=== PATIENT | female | born 1980 | race Caucasian/White ===

== ENCOUNTER 2023-02-01 08:00 | Outpatient (RCR) | payer SELFPAY, OTHER ==
--- NOTE | 2023-02-01 10:07 | BH.SGPN.GN ---
Behaviors/Verbalizations/Mental Status: []Pt alert and oriented, casually dressed and groomed. Eye contact fair. Motor activity appropriate. Speech within normal limits. Affect congruent, mood anxious. Thoughts linear, logical, no signs of hallucinations or delusions. Client Response/Progress/Benefit: [] Pt was actively engaged, providing input, and taking notes throughout session. Connected with the topic of pitfalls and listened to group discussion on internal and external barriers that prevent from choosing a healthier path to mental wellness. Group worked together to identify examples of personal internal pitfalls and pt identified theirs as avoidance, poor communication, not giving self credit, negative perspective, and panic. Pt benefited from group as pt learned to better identify and normalize potential barriers to improving mental health symptoms. Pt also gained awareness of the difference between external triggers and self-sabotaging behaviors. Pt will continue IOP tx to continue use of healthy coping skills, challenge distortions, and prevent decompensation.
--- NOTE | 2023-02-01 11:07 | BH.SGPN.GN ---
Behaviors/Verbalizations/Mental Status: []Pt alert and oriented, casually dressed and groomed, wearing black dress and bonnet. Eye contact good. Motor activity appropriate. Speech within normal limits. Affect constricted, mood anxious. Thoughts linear, logical, no signs of hallucinations or delusions. Client Response/Progress/Benefit: []Pt receptive of session, engaged throughout AEB actively listening to discussion, as well as taking notes. Pt participated in the experiential activity and did well to communicate ideas with peers and manage emotions. Pt and group processed how being open-minded and having good communication positively impacted the group. Group worked together to identify different coping skills to help manage pitfalls. Pt identified pitfalls they struggle with and shared wanting to work on pitfall of unmanaged stress by reminding herself to communicate more openly and honestly with her supports, as well as continue coming to IOP tx. Benefited from identifying personal pitfalls and strategies to overcome these pitfalls. Will continue IOP tx to increase the use of healthy coping skills, reduce negative thinking patterns, and improve distress tolerance. Narrative Note: []
--- NOTE | 2023-02-01 13:47 | BH.COMM_ITS ---
Communication Note Communication with Client Communication Note: Met with patient to complete initial paperwork. No significant changes since pre-admission assessment. Has been continuing with weekly counseling with therapist (Ronna). Medication recently discontinued (Sertraline) due to nausea, pt to follow-up with outpatient psychiatrist, Dr. Engle. Completed C-SSRS. Pt reports long-standing fleeting suicidal thoughts and survival ambivalence, denies any in the past two weeks. Pt states that she has seen improvement in mental health sx and reduced hopelessness since intake assessment. No specific trigger to worsening thoughts over the past 2-3 years. Denies any specific plan or intent in the past month, vague plan to strangle self. Two previous SA between July and November 2022. Protective factors (pets, family, reasons for living, lolly). Future-oriented (caregiving responsibilities). Has a completed safety plan through her outpatient therapist. She also is aware of crisis numbers. He noted during pre-admission screening and again today when referencing suicide I'm not going to do it. I don?t want to go to hell . Verbalizes she can keep self safe. Denies hx of self-injurious behaviors. Does not present as imminent danger as according to pt, she is at or near baseline. Denies any SI, plan or intent for suicide today. Reports can keep self safe. Denies access to guns. Aware of crisis numbers. No family hx of completed suicide. Consulted with program psychiatrist who is in agreement with plan to admit pt to [facility] level of care under diagnosis of Major Depressive Disorder, F33.2
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
--- NOTE | 2023-02-03 08:45 | BH.COMM ---
Communication Note Communication with Client Communication Note: Pt was scheduled to meet with program psychiatrist this AM, however psychiatrist became acutely ill (laryngitis and fever) and is unable to come to work. Discussed case with treatment team and psychiatrist. Plan to continue with admission to [facility] with dx of Major Depressive Disorder (f33.2) and she will be evaluated once psychiatrist is able.
--- NOTE | 2023-02-03 09:00 | BH.SGPN.GN ---
Behaviors/Verbalizations/Mental Status: [] Pt alert and oriented, neat and casually dressed and groomed. Eye contact good. Motor activity appropriate. Speech within normal limits. Affect congruent, mood content. Thoughts linear, logical, no signs of hallucinations or delusions. Reviewed pt?s symptom tracker, pt reports no suicidal ideation or intention. Client Response/Progress/Benefit: [] Client new to IOP tx and is still adjusting to the group setting. She was attentive but opted not to share during process group at this time. Per symptom tracker client reported a 1/5, with 5 being severe, for depressed mood (which is improved for pt) and a 2/5 for irritability. Client seemed to benefit from support from others and community environment. Client to continue IOP to build coping skill repertoire, improve mood stability, and prevent decompensation. Narrative Note: []
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
[2023-02-03 09:51] VITALS: BP 145/88; PULSE 78
--- NOTE | 2023-02-03 10:15 | BH.SGPN.GN ---
Behaviors/Verbalizations/Mental Status: []Pt alert and oriented, neatly dressed and groomed. Eye contact good. Motor activity appropriate. Speech within normal limits. Affect congruent, mood anxious. Thoughts linear, logical, no signs of hallucinations or delusions. Client Response/Progress/Benefit: [] Pt was a passive participant in group discussions and active during experiential activity. Participated during interactive discussion in which group worked together to define resilience (i.e. continuing to bounce back from hardship; willingness to keep trying) and what makes being resilient hard. Pt was quiet, but taking notes and participated during interactive discussion on if resilience is something we are born with or can learn. Able to relate the experiential activity back to topic of resilience. Worked well in small groups to identify strategies to build resilience. Benefited from increased awareness of the role of resilience in mental health and ways to build resilience. Will continue IOP tx to prevent decompensation, improve daily functioning, and increase emotional regulation skills. Narrative Note: []
--- NOTE | 2023-02-03 11:15 | BH.SGPN.GN ---
Behaviors/Verbalizations/Mental Status: [] Eye contact is good. Motor activity is appropriate. Appearance is casual. Speech is Appropriate. Mood is anxious. Affect is congruent. Thoughts are linear and logical. No evidence of psychosis. t. Client Response/Progress/Benefit: [] Did not participate during interactive discussions however was attentive. Participated in experiential activity with peers. Did not complete worksheet. Limited progress as she was not vocal and did not complete worksheets.Will continue in IOP to prevent decompensation, stabilize mood, increase healthy coping, and improve functioning. Narrative Note: []
--- NOTE | 2023-02-05 10:03 | BH.MDN ---
Multi-Disciplinary Note Note 45-min Individual: Time Started:: 09:05 Date: 02/05/23 Purpose of session/treatment goals addressed:: Review current symptoms and progress in IOP. Risk assessment. Eye Contact:: Good (tearful throughout) Motor Activity:: Appropriate Appearance:: Casual and Other (wearing bonnet and traditional orthodoxy dress) Speech:: Appropriate and Soft Mood:: Depressed Affect:: Congruent Thoughts:: Linear, Logical and No evidence of hallucinations/delusions noted Staff Interventions:: thought challenging, psychoeducation on: (affirmational statements), CBT techniques, rapport building, strengths perspective and completed risk assessment / safety planning Client Response:: Pt presented this morning tearful and stated ?I woke up really depressed?. Willing to meet with therapist to address current sx and further assess for risk. Pt reports that she felt positive after leaving group on Wednesday and made Richard cookies for her children. She overcooked the cookies and reports that her children criticized her for this. Pt shared that she became upset by this and walked away which resulted in comments about her being ?lazy?. Pt was able to go with her the next day to get lunch which helped to improve her mood but pt shared this had not lasted long. She explained that her children continued to criticize her the next day and complained that attending IOP tx kept her from completing other household responsibilities such as laundry as they wash and hang the clothes Wednesday, Wednesday, and Saturdays. Reported feeling worthless and like a burden to her family. Expressed experiencing suicidal thoughts last night as a result. Reports it did not get to the point of plan or intent and she was able to go braid the horses hair with her youngest child which improved her mood until the thoughts passed. Pt denies wanting to but does not want to continue to feel the way she does or be treated poorly. Reports she has the safety plan created with her outpatient therapist, Ronna at [facility]. Believes that her children?s lack of understanding of mental health issues may contribute to their comments and behaviors and that she has been trying to remind them that she is getting help to improve herself and be ?better for the family?. Pt shared that her 22-year-old daughter is often the instigator of the critical comments she receives and would like to specifically work on addressing this. Shared that she and her daughter do not often get to spend one-on-one time together and would like to improve the relationship they have. Discussed inviting her daughter to go for a ride on ?horse and buggy? to allow them time to talk and begin working on cultivating the relationship. Pt receptive of creating a safety plan for the weekend. Plans to call her [id number] this afternoon as he is supportive of her mental health. Also discussed plans to spend time with the animals, bake candy on Wednesday, and make breakfast over the firepit Wednesday. Shared she finds the outdoors calming and a major source or comfort. Additionally, began discussion on positive affirmations and pt worked with therapist to identify specific self-talk statements she would like to hear when feeling low. Identified ?It won?t feel like this forever?, ?keep trying?, and reminding herself of specific things she does find enjoyable in life. Reports improved mood and smiling by end of session. Risks/Concerns:: refer above. Fleeting SI the previous night, lasting less than 30 minutes, according to patient. Pt denies active SI, plan, or intent no grounds for calling police or seeking involuntary assessment at ER. Pt willing to safety plan and reports ability to maintain safety. Protective factors include her and lolly. Progress Toward Goals/Plan:: Progress noted. Pt reported brief, passive SI last night but was able to use calming skills to manage these thoughts. This was only her second day in IOP. According to pt her children?s criticism often reinforce negative thoughts about herself and her worth. Reports struggling with completing daily responsibilities which often lead to increased frustration amongst her children who have difficulties understanding and supporting her mental health. Struggles with setting boundaries and advocating for her needs within the home. Will continue in IOP to maintain safety, increase healthy coping, stabilize mood, improve boundaries with supports and functioning. Time Stopped:: 09:55
--- NOTE | 2023-02-05 10:10 | BH.SGPN.GN ---
Behaviors/Verbalizations/Mental Status: []Client alert and oriented, casually dressed and groomed - wearing dress and bonnet. Eye contact good. Motor activity appropriate. Speech within normal limits. Affect congruent, mood anxious and depressed. Thoughts linear, logical, no signs of hallucinations or delusions. Client Response/Progress/Benefit: []Client receptive to session AEB providing input when prompted, listening attentively to others, and taking notes. Attentive throughout psychoeducation on the cognitive triangle and maintenance cycles. Worked on identifying own vicious cycle. Engaged in group discussion reviewing the impact of daily activities and behaviors in either reinforcing unhealthy maintenance cycles and depression or assisting in reducing symptoms (?down? vs ?up? activities). Client identified common ?down? activities they engage in as: isolating, negative self-talk, shutting down, and staying in bed. Common ?Up? activities client identified included: playing with pets, reading bible, showering, fishing, and playing games. Appeared to benefit from increased awareness of current behaviors and impact these have on mental health. Pt to remain in IOP tx to improve mood stability, increase use of distress tolerance skills, and prevent decompensation. Narrative Note: []
--- NOTE | 2023-02-05 11:10 | BH.SGPN.GN ---
Behaviors/Verbalizations/Mental Status: [] Eye contact is fair. Motor activity is appropriate. Appearance is casual. Speech is Appropriate. Mood is anxious. Affect is constricted. Thoughts are linear and logical. No evidence of psychosis. Client Response/Progress/Benefit: [] Pt responded well to session, attentive and engaged in group discussions and activity. Group discussed values and the benefits that knowing one's values can have on one's mental health. Pt explored own values and identified personal top values. Pt stated important value is mental/emotional health. Client set goals to talking kindly to self, take medications, make time for self, and petting animals. Pt appeared to benefit from exploring values and creating a weekly goal. Will continue in IOP to increase healthy coping skills, increase confidence, and prevent decompensation.
--- NOTE | 2023-02-08 09:00 | BH.SGPN.GN ---
Behaviors/Verbalizations/Mental Status: [] Pt alert and oriented, neatly dressed and groomed. Eye contact good. Motor activity appropriate. Speech within normal limits. Affect congruent, mood depressed. Thoughts linear, logical, no signs of hallucinations or delusions. Reviewed pt?s symptom tracker, no risk for suicidal ideation, plan, or intent 02/08/23 Client Response/Progress/Benefit: []Pt responded well to session, attentive and engaged. Pt reports feeling happy this morning, which appeared incongruent to her report of having no wins and having a lot of stressors. Pt did share that she is happy to be at [facility] because she enjoys the groups and the people. Pt stated her kids are causing a lot of stress for pt right now. Pt has many children over a wide age range, and they are all dealing with different issues. Pt stated a mental health win for her today is that she continues to show up to [facility] and she is actually looking forward to [place]. Pt appeared to benefit from group feedback and support. Pt will continue IOP tx to prevent decompensation, improve daily functioning, and increase healthy coping skills. Narrative Note: []
--- NOTE | 2023-02-08 10:10 | BH.SGPN.GN ---
Behaviors/Verbalizations/Mental Status: [] Eye contact is fair to good. Motor activity is appropriate. Appearance is casual, wearing traditional quaker garb. Speech is Appropriate but constricted. Mood is depressed and anxious. Affect is constricted. Thoughts are linear and logical. No evidence of psychosis. Client Response/Progress/Benefit: [] Pt was an attentive but mostly passive participant in group discussions. Attentive during psychoeducation on the 4 communication styles (Passive, Passive-Aggressive, Aggressive, and Assertive) and the obstacles to effective communication. Contributed some during interactive discussion on the benefits of communicating effectively which included; having one's needs met, building connection with others, decreases stress and uncertainty, improved relationships, encouragement/increased motivation, increased trust, and increased understanding of others. Worked well in small group and shared more during discussion in which pt and peers identified the benefits and disadvantages to the different communication styles. Benefited from increased understanding of communication styles and how these can impact effective communication. Pt reports identifying most with passive-aggressive communication which continues to reinforce stress within the relationship with her children. Will continue in IOP to prevent decompensation, maintain mood stability, and continue to improve functioning. Narrative Note: []
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
--- NOTE | 2023-02-09 11:10 | BH.SGPN.GN ---
he communication styles she commonly uses is passive especially with her children. She wants to work on being more assertive through using I statements more . Benefited from practicing in the moment communication skills as well as increased awareness of communication styles commonly used. Will continue in IOP to prevent decompensation, increase healthy coping, and improve functioning. Narrative Note: []
--- NOTE | 2023-02-10 10:10 | BH.SGPN.GN ---
Behaviors/Verbalizations/Mental Status: [] Eye contact is fair. Motor activity is appropriate. Appearance is casual. Speech is Appropriate. Mood is anxious. Affect is constricted. Thoughts are linear and logical. No evidence of psychosis. Client Response/Progress/Benefit: [] Pt mostly passive participant AEB pt providing no input throughout group discussion. She did appear to listen to others comments. Pt attentive during psychoeducation about defense mechanisms. Showed increased engagement during small group discussions and helped group identify which defense mechanisms were maladaptive, adaptive, or both. Pt started to work with group on identifying how each defense mechanism can impact mental health. Seemed to benefit from gaining awareness about the different defense mechanisms. Pt to continue IOP to work on improving view of self, building confidence, and prevent decompensation.
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
--- NOTE | 2023-02-10 12:41 | BH.DR.ITP ---
Initial Treatment Plan Patient Information Visit Information: ADMISSION DATE: EXPECTED LOS: 4-6 weeks Problems/Symptoms Problem #1:: Depression Symptom:: Sadness, hopelessness, worthlessness, guilt, low energy, passive thoughts of , irritability, passive and active suicidal ideation Problem #2:: Anxiety Symptom:: Worry, rumination
--- NOTE | 2023-02-10 15:16 | BH.MDN ---
Multi-Disciplinary Note Note 30-min Individual: Time Started:: 09:20 Date: 02/10/23 Purpose of session/treatment goals addressed:: Purpose of the session was to address treatment plan goal #1 as well as learn grounding skill of deep breathing. Eye Contact:: Good Motor Activity:: Appropriate Appearance:: Casual Speech:: Appropriate Mood:: Anxious and Depressed Affect:: Constricted Thoughts:: Linear, Logical and No evidence of hallucinations/delusions noted Staff Interventions:: motivational interviewing, CBT techniques, mindfulness skills, rapport building, strengths perspective and taught coping skills Client Response:: Pt responded well to session, open to meeting with therapist. Pt reports she had a difficult time managing her emotions yesterday as her children and had done various things which upset her. Pt explained that her children had complained that pt made leftovers for lunch and called pt ?lazy? for not making a new meal. Pt shared that she became upset by this and felt more negative about herself and her worth as a result. She did take some time away from the house to go [employer] shopping which aided in improving her mood. Reports that upon her return her children had apologized for complaining and recognized pt was trying to prevent waste. However, later that afternoon she was informed by her that he had decided to purchase several horses without first consulting pt. Shared that this was a major financial investment and therefore very stressful for her as she does not believe they have the finances for such an investment. Reports that she became very upset by this and yelled at her resulting in her older daughters telling pt to go outside to calm down. Pt reports doing so and spent time observing her other children completing some chores. Shared that the outdoors are a significant source of support for her and aided in improving her mood. She was then able to discuss the events with her and explain why this had upset her. Reports he was understanding and agreed to consult pt prior to making any significant future purchases. Pt was receptive of working with therapist to begin identifying her common warning signs and triggers for dysregulation. Pt identified receiving harsh criticism from her children or feeling left out by her are primary triggers. Reviewed calming skills she can use in moments she recognized herself becoming dysregulation. Pt identified coloring, going outside, or calling a support. Receptive of learning deep breathing techniques in session as well. Willing to practice these skills over the weekend. Risks/Concerns:: Pt reports fleeting passive SI but denies active current suicidal ideation, plan, or intent as of this date. Progress Toward Goals/Plan:: Progress remains limited. Pt is making gains in beginning to apply distress tolerance skills and positive self-talk statements; however, at times reports difficulties with using the skill in moments she is triggered. Continues to report mood instability and difficulties with managing her emotions when triggered by her children or 's behaviors or comments. At times this has led to increased SI in the past. Pt is working on assertive communication but is not yet readying to establish boundaries with her children regarding their critical comments about pt and her mental health. Recommended continued IOP tx to improve mood stability, reduce depression, and improve healthy boundaries with supports. Time Stopped:: 09:50
--- NOTE | 2023-02-12 09:05 | BH.SGPN.GN ---
Behaviors/Verbalizations/Mental Status: [] Pt alert and oriented, neatly dressed and groomed. Eye contact good. Motor activity appropriate. Speech within normal limits. Affect constricted, mood depressed Thoughts linear, logical, no signs of hallucinations or delusions. Reviewed pt?s symptom tracker, no risk for suicidal ideation, plan, or intent 02/12/23 Client Response/Progress/Benefit: []Pt responded well to session, attentive and receptive to feedback. Pt reports feeling nervous this morning. Pt's process group check-ins are always short, and pt stated she struggles to identify any wins. Pt connected with a peer who reported struggling with anger and pt shared I want to work on my anger. Pt reported that she fears that she has hurt my enough already from witnessing pt's anger. Pt receptive to group feedback and encouragement which pt appeared to benefit from. Pt will continue IOP tx to prevent decompensation, improve healthy coping skills, and improve daily functioning. Narrative Note: []
--- NOTE | 2023-02-12 10:00 | BH.SGPN.GN ---
Behaviors/Verbalizations/Mental Status: [] Client alert and oriented, casually dressed and groomed. Eye contact good. Motor activity appropriate. Speech within normal limits. Affect congruent, mood euthymic and anxious. Thoughts linear, logical, no signs of hallucinations or delusions. Client Response/Progress/Benefit: [] Client responded well to session, AEB writing notes. Client did not offer much input during group discussion. Group identified the benefits of change which included: personal growth, increased confidence, improving mental health, and creating momentum. Worked with the group to identify barriers to change, which included: uncomfortable emotions such as anxiety, lack of motivation, fatigue, pain, and physical barriers. Client participated along with group in activity where they identified and discussed the emotions related to change. Benefited from increased awareness and understanding of emotions, benefits, and barriers related to change. Will continue IOP tx to continue to prevent decompensation and increase overall functioning. Narrative Note: []
--- NOTE | 2023-02-12 11:10 | BH.SGPN.GN ---
Behaviors/Verbalizations/Mental Status: [] Client alert and oriented, casually dressed and groomed. Eye contact good. Motor activity appropriate. Speech within normal limits. Affect congruent, mood euthymic. Thoughts linear, logical, no signs of hallucinations or delusions. Client Response/Progress/Benefit: [] Client responded well to session, attentive. Did well to process activity and work with group to relate the strategies used to overcome barriers in the activity to managing change in own life. Client identified and overall change she would like to see in herself is having an overall improvement in her mental health. Client identified currently being in the preparation stage for this particular change. Appeared to benefit from identifying a small goal to work towards. Client will continue IOP tx to increase self worth, gain healthy coping skills, and increase overall functioning. Narrative Note: []
--- NOTE | 2023-02-17 09:47 | PCM.BH.PN_ITS ---
Progress Note Progress Note: History of Present Illness/Interim History: The patient is a 42-year-old Yazidism female with a history of depression and anxiety who is seen in follow-up at the [facility] behavioral health IOP. I last saw the patient 1 week ago and at that time she continued to have significant suicidal ideation. She was restarted on medications in the form of Lexapro 1 week ago at 5 mg daily and was told to increase it to 10 mg daily after several days if she was tolerating it well. She is tolerating it well and increased to 10 mg few days ago. She feels her mood is slightly better and she is less depressed. She feels she is getting a little more support from her . She had did have 1 anger outburst at her yesterday but then they went to [place] and she went with him and this helped her because she was able to get out of the house. Her cold sores around her mouth have pretty much resolved after treatment with Valtrex. She denies any suicidal ideation in the past week and felt she handled [place] well. She still has sadness, crying, occasional hopelessness, worthlessness, guilt, and passive thoughts of . She is still enjoying petting animals and being outdoors. Sleep and appetite remain stable. She still feels that suicide is not morally right . She denies homicidal ideation, plan for suicide, hallucinations or delusions. She denies any panic attacks. Current Psychiatric Medications: [] Zoloft discontinued 2 weeks ago secondary to nausea. Lexapro 5 mg daily for 3 days and then 10 mg p.o. daily for the past 4 to 5 days. Mental Status Examination: [] The patient is a 42-year-old Yazidism woman dressed in the normal Yazidism fasten who is who appears a little older than stated age and is casually dressed and groomed with good hygiene. Her cold sores around her mouth and nose have almost completely resolved. She is coopera tive and pleasant during the interview. She has no psychomotor agitation or retardation. Eye contact is good and speech is normal rate and rhythm and fluent with no pressure. Mood is depressed. Affect is constricted but not flat. Thought process is goal-directed and organized. Thought content: There is evidence of passive thoughts of . There is no evidence of suicidal ideation active or passive, plan for suicide, homicidal ideation, hallucinations or delusions. Reality testing is intact. Intelligence is average or above. Judgment is intact. Insight improving. Diagnoses: [] 1. Major depressive disorder, recurrent, severe without psychosis 2. Generalized anxiety disorder 3. Mouth and lip cold sores (resolving) 4. Primary support issues Plan: [] The patient will continue the IOP in behavioral health at [facility] as the structure, support, education and group therapy will hopefully prevent worsening of the patient's symptoms which could require ad mission to the hospital. She felt safe during the interview and if it anytime she does not feel safe she agrees to let us know or go to the emergency room. The risk, options, possible complications and side effects of the medications were discussed with the patient and she understands and accepts these. She will continue her Lexapro at 10 mg p.o. daily and refills are sent in for this. I will see the patient in follow-up in 2 weeks and the patient will continue to follow-up with outpatient providers.
--- NOTE | 2023-02-17 10:10 | BH.SGPN.GN ---
Behaviors/Verbalizations/Mental Status: []Pt alert and oriented, neatly dressed and groomed. Eye contact fair. Motor activity appropriate. Speech within normal limits. Affect constricted, mood depressed. Thoughts linear, logical, no signs of hallucinations or delusions. Client Response/Progress/Benefit: [] Pt connected with topic of anxiety and participated throughout, providing input and taking notes. Attentive during psychoeducation on different anxiety disorders and participated throughout interactive discussion defining anxiety and identifying cognitive and physiological symptoms of anxiety. Group discussed how anxiety can prevent them from trying new things. 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 Pt identified canceling plans as their safety behavior. Benefited from increased awareness and insight on anxiety and its impact. Plan is to continue in IOP to prevent decompensation, improve mood stability, and gain healthy coping skills. Narrative Note: []
--- NOTE | 2023-02-17 10:43 | BH.MDN ---
Multi-Disciplinary Note Note 30-min Individual: Time Started:: 09:30 Date: 02/17/23 Purpose of session/treatment goals addressed:: Purpose of session was to address treatment plan goal #1 and begin working on healthy boundary setting. Eye Contact:: Good Motor Activity:: Appropriate Appearance:: Casual Speech:: Appropriate Mood:: Anxious and Depressed Affect:: Congruent Thoughts:: Linear, Logical and No evidence of hallucinations/delusions noted Staff Interventions:: thought challenging, motivational interviewing, psychoeducation on: (boundary setting and assertive communication), CBT techniques and strengths perspective Client Response:: Pt receptive of session, engaged and more open than in prior sessions. Pt notes improvements in her mood over the past week and attributes this in part to doubling her Lexapro from 5mg to 10mg since meeting with the program psychiatrist last week. Additionally shared that most of her family was more amiable over the hol, apart from her 22-year-old daughter, and they had been able to spend time together as a family with minimal conflict. Pt reported the 22 year-old continues to struggle with taking out her own negative mood on pt. Provided an example in which her daughter made comments that ?mom always messes up everything? after pt made a mistake while the family was playing a game together. Pt shared trying to ignore the comment but struggled to do so as pt?s and [id number] brought up concerns about how the 4 oldest children speak with pt. Pt receptive of discussion on assertive communication and establishing a boundary of respect. Pt reports wanting to talk with her children, especially the 22-year-old, about their comments but is unsure of how to go about doing so. Receptive of discussion on ?I? statements and being clear about her expectations. Pt reports her daughter will likely get upset and lock herself in the room. In challenging pt?s use of personalization, pt able to recognize how her daughter chooses to process and regulate her own emotions is not pt?s responsibility. Reports a goal of first discussing her plans to implement a boundary with her [id number] and who are supports. Shared she would like to have the conversation with her daughter by Wednesday of next week as this is one of pt?s largest stressor impacting her mood stability. Risks/Concerns:: Pt denies any SI, plan, or intent in the past week. Was receptive of reviewing safety plan and reports willingness to reach out to supports if beginning to experience SI. Pt future oriented and reports an ability to maintain safety. Family and lolly are protective factors. Pt additionally willing to touch base with therapist on scheduled IOP days to determine if she may need an additional support session. Pt is on the waitlist for [facility] treatment program and has an admission date of 03/12/22 if pt does not see consistent enough progress prior to this date. Progress Toward Goals/Plan:: Some progress noted. Pt reports improved mood and ability to reach out to healthy supports when struggling. Reports no SI, plan, or intent in the last week which pt attributes to a combination of medication, improved support, and learning new skills in IOP tx. Pt reports increased understanding of emotion regulation skills and mindfulness strategies. She continues to struggle with interpersonal conflict with her children and poor boundaries causing increased stress. Pt distress tolerance remains low and she is recommended to remain in the IOP tx program to continue to promote mood stability, encourage healthy boundaries, and prevent decompensation.
--- NOTE | 2023-02-17 11:10 | BH.SGPN.GN ---
Behaviors/Verbalizations/Mental Status: []Pt alert and oriented, neatly dressed and groomed. Eye contact good. Motor activity appropriate. Speech within normal limits. Affect constricted. mood anxious. Thoughts linear, logical, no signs of hallucinations or delusions. Client Response/Progress/Benefit: [] Pt was an active participant AEB pt providing input and listening attentively to peers. Attentive during psychoeducation on mindfulness coping skills and their impact on reducing anxiety and improving overall mental health wellness. Group was able to identify self-soothing and mind-based coping skills which included: 5-senses, meditation, deep breathing, journaling, and progressive muscle relaxation. Pt also participated with peers in practicing mindfulness skills in session. Pt would like to work on meditation and telling herself that thoughts are thoughts not facts. Appeared to benefit from increasing repertoire of anxiety reduction skills. Pt will continue in IOP tx to reduce negative thinking patterns, increase self-confidence, and gain healthy coping skills. Narrative Note: []
--- NOTE | 2023-02-19 09:05 | BH.SGPN.GN ---
Behaviors/Verbalizations/Mental Status: [] Pt alert and oriented, neatly dressed and groomed. Eye contact good. Motor activity appropriate. Speech within normal limits. Affect congruent, mood anxious. Thoughts linear, logical, no signs of hallucinations or delusions. Reviewed pt?s symptom tracker, no risk for suicidal ideation, plan, or intent 02/19/23 Client Response/Progress/Benefit: []Pt responded well to session, attentive and participating in the GLAD activity. Pt reports feeling happy and sad this morning. Pt stated she feels grateful to be at IOP as pt is getting new skills and feels that her medication is helping improve her mood. Pt stated she is also benefitting from not isolating and from getting new perspectives. Pt is feeling worried today about having to stock the freezer with 700lbs of meat when she gets home, but pt believes there will be people to help her. Pt appeared to benefit from practicing a self-reflection technique and from group support. Pt will continue IOP tx to promote mood stability, improve self-compassion skills, and improve daily functioning. Narrative Note: []
--- NOTE | 2023-02-19 10:10 | BH.SGPN.GN ---
Behaviors/Verbalizations/Mental Status: []Pt alert and oriented, casually dressed and groomed. Eye contact fair. Motor activity appropriate. Speech within normal limits. Affect congruent, mood anxious and euthymic. Thoughts linear, logical, no signs of hallucinations or delusions. Client Response/Progress/Benefit: [] Pt receptive to session AEB contributing to small group discussion, as well as listening attentively to others, and taking notes. Worked with group to brainstorm the positive and negative aspects of stress on physical and mental health. Group did well to identify the benefits of stress as well as the impact of distress on performance, relationships, and mental health. Pt identified their personal top stressors as: mental health, home responsibilities, family conflict, and money concerns. Pt reports when their jar is ?overflowing? pt tends to respond by shutting down. Pt seemed to benefit from increased awareness of current stressors and impact stress has on mental health. Recommended to continue IOP tx to improve confidence, continue working on setting boundaries, and prevent decompensation.
--- NOTE | 2023-02-19 11:10 | BH.SGPN.GN ---
Behaviors/Verbalizations/Mental Status: []Pt alert and oriented, casually dressed and groomed. Eye contact good. Motor activity appropriate. Speech within normal limits. Affect congruent, mood anxious and euthymic. Thoughts linear, logical, no signs of hallucinations or delusions. Client Response/Progress/Benefit: [] Pt was an active participant in group discussions and experiential activity. Was able to identify the connection between the experimental activity and utilization of stress management skills. Pt reported group succeeded because of their clear communication. Attentive during psychoeducation on the 4 A's (Avoid, adapt, alter, accept) of coping with stress. Pt shared plans to utilize the skill of accepting what's outside her control and focusing on what she can do with each of her stressors. Benefited from increased awareness of stress management strategies. Will continue in IOP to continue building healthy coping, build confidence, and prevent decompensation.
== END 2023-02-21 23:59 ==
LOC: BHIOP 08:00
PROVIDERS: Referring Provider Psychiatry & Neurology Psychiatry; Visit Provider Psychiatry & Neurology Psychiatry
DX: F33.2 Major depressive disorder, recurrent severe without psychotic features (principal); F41.1 Generalized anxiety disorder; R45.851 Suicidal ideations; Z79.899 Other long term (current) drug therapy
CPT/HCPCS: S9480; 90832; 90834; 90837; 90853

== ENCOUNTER 2023-02-23 07:28 | Outpatient (RCR) | payer SELFPAY, OTHER ==
[2023-02-22 00:49] VITALS: BP 145/88; PULSE 78
--- NOTE | 2023-02-24 09:05 | BH.SGPN.GN ---
Behaviors/Verbalizations/Mental Status: [] Pt alert and oriented, casually dressed and groomed. Eye contact good. Motor activity appropriate. Speech within normal limits. Affect constricted, mood depressed. Thoughts linear, logical, no signs of hallucinations or delusions. Reviewed pt?s symptom tracker, no risk for suicidal ideation, plan, or intent 02/25/23 Client Response/Progress/Benefit: []Pt responded well to session, attentive and participating when prompted. Pt reports feeling tired this morning after the long weekend and being social for most of the weekend. Pt stated one of her wins is that she and her family got all the meat put away and after that pt was still able to enjoy herself. Pt shared she and her played games with friends until the underground roof bolter hours. Pt's stressor is ongoing issues with her parents and siblings. Pt shared this was her first holiday away from her family and it was very hard for pt. Pt reported she has some supports she can talk to about this outside of IOP which is helpful. Pt appeared to benefit from peer support and from not isolating today. Pt will continue IOP tx to prevent decompensation, improve daily functioning, and increase self-care practices. Narrative Note: []
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
--- NOTE | 2023-02-24 10:05 | BH.SGPN.GN ---
Behaviors/Verbalizations/Mental Status: []Pt alert and oriented, casually dressed and groomed. Eye contact good. Motor activity appropriate. Speech within normal limits. Affect congruent, mood anxious and depressed. Thoughts linear, logical, no signs of hallucinations or delusions. Client Response/Progress/Benefit: []Pt was an active participant during interactive group discussions. Attentive during psychoeducation on the six types of boundaries. Pt along with peers contributed to interactive discussion on defining what a boundary is and group identified challenges to setting boundaries. Pt discussed personal barriers of difficulties with confrontation and low self-esteem. Group reviewed the 6 types of boundaries. Pt stated she does well with material and time, but feels she needs to improve upon emotional and physical boundaries. Pt benefited from increased awareness and insight on the importance/benefit to setting healthy boundaries. Will continue IOP tx to increase distress tolerance skills, improve daily functioning and boundaries within interpersonal relationships, and reduce interpersonal conflict. Narrative Note: []
--- NOTE | 2023-02-24 11:15 | BH.SGPN.GN ---
Behaviors/Verbalizations/Mental Status: []Pt alert and oriented, casually dressed and groomed. Eye contact good. Motor activity appropriate. Speech within normal limits. Affect congruent, mood depressed and anxious. Thoughts linear, logical, no signs of hallucinations or delusions. Client Response/Progress/Benefit: []Pt responded well to session AEB listening attentively to peers and providing input when prompted. Pt attentive during psychoeducation on the different boundary styles. Pt identified she is more flexible with her and is making more progress in this area since starting mental health tx. Stated she is rigid when it comes to work and is not likely to ask for help. Pt was given a handout on strategies for healthy boundary setting. Identified wanting to practice reflecting on long-term benefits of boundaries and improving use of assertive communication to improve her own boundaries. Appeared to benefit from increasing insight to boundary setting and the impacts on mental health. Seemed to benefit from increased awareness of boundary styles and strategies to improve setting boundaries. Will continue IOP tx to promote healthy communication and boundary setting, continue use of healthy coping skills, and prevent decompensation.] Narrative Note: []
--- NOTE | 2023-02-26 10:10 | BH.SGPN.GN ---
Behaviors/Verbalizations/Mental Status: [] Client alert and oriented, casually dressed and groomed. Eye contact good. Motor activity appropriate. Speech within normal limits. Affect congruent, mood depressed. Thoughts linear, logical, no signs of hallucinations or delusions. Client Response/Progress/Benefit: [] Client did not participate in large group discussions however was attentive during psychoeducation. Attentive during interactive discussion in which the group defined self-care and discussed its benefits. Attentive as other group members discussed barriers to engaging in self-care as well as benefits which included; decreased irritability, decreased stress/anxiety, improved physical health, increased productivity, etc. Client participated at times in small group where they worked to identify common self-care ?myths? (self-care is selfish, self-care is self-indulgent, self-care is just personal hygiene, self-care should be fun, self-care is too time consuming, I don?t deserve it, self-care means I?m not being productive).Benefited from increased awareness of self-care, its benefits, and the consequences of not utilizing self-care strategies. Will continue IOP tx to maintain safety, increase healthy coping skills, and prevent decompensation. Narrative Note: []
--- NOTE | 2023-02-26 11:10 | BH.SGPN.GN ---
Behaviors/Verbalizations/Mental Status: []Pt alert and oriented, neatly dressed and groomed. Eye contact good. Motor activity appropriate. Speech within normal limits. Affect congruent, mood depressed. Thoughts linear, logical, no signs of hallucinations or delusions. Client Response/Progress/Benefit: [] Client engaged participant AEB completing self-assessment worksheet and providing input throughout discussion. Client completed worksheet identifying current self-care practices and what self-care activities client wants to start using. Client selected physical self-care to begin practicing more consistently. Client plans to do this by having a more routine sleep/wake schedule. ?Appeared to benefit from completing the self-care evaluation and gaining insights into current self-care practices, as well as identifying areas in which client would like to improve upon. Client will continue IOP tx to prevent decompensation, improve daily functioning, and reduce negative thinking patterns. Narrative Note: []
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
--- NOTE | 2023-03-03 09:05 | BH.SGPN.GN ---
Behaviors/Verbalizations/Mental Status: [] Eye contact is good. Motor activity is appropriate. Appearance is casual. Speech is Appropriate. Mood is anxious. Affect is congruent. Thoughts are linear and logical. No evidence of psychosis. Reviewed daily check in sheet and no reports of suicidal ideations or intent. Client Response/Progress/Benefit: [] Pt participated when prompted. Attentive. Shared that she was ill in the beginning of the week, however is feeling better. Mental health wins include complete household tasks. She reports that her mental health is stablizing. Credits this mostly to medication change stating that she is less irritable and reactive. Elaborated on how this has improved her stress, anxiety, depression, and relationships. Smiling and more engaged in group than usual. Progress noted per pt report. Benefited from group support, encouragement, and feedback. Will continue in IOP to maintain safety, stabilize mood, and improve functioning. Narrative Note: []
--- NOTE | 2023-03-03 10:10 | BH.SGPN.GN ---
Behaviors/Verbalizations/Mental Status: [] Client alert and oriented, casually dressed and groomed. Eye contact good. Motor activity appropriate. Speech within normal limits. Affect congruent, mood euthymic and anxious. Thoughts linear, logical, no signs of hallucinations or delusions. Client Response/Progress/Benefit: [] Client responded well to session AEB sharing and listening attentively to others. Group provided examples of benefits of having social support, including: feeling like you matter, security, and motivation. Client also participated in group discussion regarding the barriers to accessing support including personal examples like: not reaching out, lack of communication, and over using certain supports. Client participated in experiential activity illustrating the impact communication, boundaries, and patience play in creating healthy support systems. Client appeared to benefit from increased knowledge of the benefits of social support and greater self-awareness. Will continue IOP tx to prevent decompensation, reduce negative self-talk, and improve overall functioning. Narrative Note: []
--- NOTE | 2023-03-03 11:10 | BH.SGPN.GN ---
Behaviors/Verbalizations/Mental Status: [] Client alert and oriented, casually dressed and groomed. Eye contact good. Motor activity appropriate. Speech within normal limits. Affect congruent, mood euthymic and anxious. Thoughts linear, logical, no signs of hallucinations or delusions. Client Response/Progress/Benefit: [] Client was an active participant throughout AEB contributing to discussion, providing personal examples, and taking notes. Client processed emotions felt in the activity and how they coped in the moment. Client provided input during discussion on the types of support our supports can provide. Client able to identify current support system and barriers that get in the way of using supports by drawing out their own support net. Client reported after identifying what type of supports they receive; they gained awareness that they could benefit from more social supports. Client identified steps to achieve this by saying yes when a friend reaches out, and calling her sister in law more. Client shared increasing this support will help them by improving overall ability to communicate with others. Client seemed to benefit from identifying the type of support client needs to work on improving. Client recommended to continue IOP tx to prevent decompensation, increase overall functioning, and increase emotional regulation skills. Narrative Note: []
--- NOTE | 2023-03-03 11:55 | BH.MDN ---
Multi-Disciplinary Note Note 45-min Individual: Time Started:: 08:30 Date: 03/03/23 Purpose of session/treatment goals addressed:: Purpose of session was to address tx plan goal #1 and goal #2, intervention #2. Created anger management plan. Eye Contact:: Good Motor Activity:: Appropriate Appearance:: Neat and Casual Speech:: Appropriate Mood:: Anxious and Dysthymic Affect:: Congruent Thoughts:: Linear, Logical and No evidence of hallucinations/delusions noted Staff Interventions:: motivational interviewing, psychoeducation on: (trauma impacts on emotion regulation), CBT techniques, strengths perspective and other (created anger management plan) Client Response:: Pt responded well to session, reports feeling better today as she was sick Wednesday and missed group. Pt reports her family was unable to celebrate her birthday due to pt being sick, therefore they celebrated yesterday. Discussed feeling loved and cared for, as her children went out of their way to surprise pt with sandwiches and a new coat. Pt expressed gratitude as she had been in need of a new winter coat and was glad they had been paying attention. Noted that overall her relationships with her children are improving and they are continuing to be more supportive and less critical of pt. Went on to discuss a conversation she had the previous day. Shared that her [id number] brought over a friend who has previously struggled with her mental health to talk with the pt. She reported that this was very beneficial and that she felt less alone in her struggles. Discussed some of the coping suggestions this woman provided, such as remembering to ?keep looking up to God? in hard times and that ?things will get better if I just hold on?. Noted plans to stay in contact for continued support as well. Pt described current stressor of outside observers continuing to interfere with pt?s mental health treatment by making suggestion on how her should be ?handling things?. Pt disclosed that another person recommended to pt?s that she seek residential treatment. Pt expressed becoming upset by this and angry other?s continue to force their involvement. Pt shared taking this out on her and smacking his arm in anger. Pt continues to express guilt, shame, and embarrassment when becoming physically aggressive. Shared that she struggles with remembering her skills in the moment and reverts back to maladaptive behaviors. Noted that her remains supportive and attempts to calm pt in moments of distress. Pt receptive of and appeared to connect with psychoeducation on the impact of trauma on emotion regulation. Receptive of creating a concrete anger management plan that pt can keep with her to remind her of the adaptive skills she can utilize to better manage her emotions. This plan included: 5-senses, deep breathing, walking out to visit the animals, writing, and progressive muscle relaxation. Reports to practice 1-2 skills daily to improve her ability to apply these in moments of distress. Risks/Concerns:: None noted. Pt denies SI, plan, or intent as of this date, 03/03/23. Progress Toward Goals/Plan:: Progress remains variable. Pt reports continued improvement in her mood, specifically with sx of depression and anxiety. She reports her interpersonal relationships are improving and her caregiver fatigue has reduced as a result. Pt has been complaining less of fatigue and low motivation. She does however continue to struggle with distress tolerance, specifically related to unexpected news/information of other?s talking to her about her or making decisions without her consent/input. Pt reports lashing out verbally and physically at her during these instances, followed by guilt and embarrassment about doing so. Pt shared that she does not want to respond with anger but struggles in the moment to remember to use her more adaptive coping mechanisms. Pt receptive of creating a concrete anger management plan she can keep with her to remind her of her skills. Additionally, reports plans to practice 1-2 skills daily to improve ease of implementation in the moment. Time Stopped:: 09:10
--- NOTE | 2023-03-05 09:05 | BH.SGPN.GN ---
Behaviors/Verbalizations/Mental Status: [Patient was alert and oriented, appropriately dressed and groomed. Eye contact was good, motor activity normal, speech within normal limits. Affect congruent, mood content. Thoughts linear, logical, no signs of hallucinations or delusions. Reviewed Patients symptom tracker and the patient reports low in depressed mood. Patient does not report any symptoms in anxiety/panic attacks, agitation/irritability/anger, self-harm urges, or thought/risk of suicide. ] Client Response/Progress/Benefit: [Patient was engaged and open to the discussion. Patient reported her mood to be ?tired?. Patients first win was that she was able to get all her windows cleaned yesterday which has been something she has been putting off. Patients second win was that she has been using the 5 senses coping skills which has been helping ?a little?. Patients stressor is that she is having a lot of people over the weekend, and she still needs to go buy some of it and worry about cooking it. Patient was interactive and respectful with other group members about their mental wins and stressors. Patient benefited from the discussion by listening to feedback and giving input on her peer?s stressors and mental health wins. Patient will continue with IOP treatment to help develop healthy skills, promote mood stability, and improve distress tolerance. ] Narrative Note: []
--- NOTE | 2023-03-05 10:10 | BH.SGPN.GN ---
Behaviors/Verbalizations/Mental Status: [] Eye contact is good. Motor activity is appropriate. Appearance is casual. Speech is Appropriate. Mood is anxious. Affect is congruent. Thoughts are linear and logical. No evidence of psychosis. Client Response/Progress/Benefit: [] Patient did not participate in group discussions. Attentive during psychoeducation on growth mindset. Participated during the activity. Attentive during interactive group discussion on growth mindset in which group verbalized their current fixed mindsets and how they affect their mental health. Patient shared common fixed mindset thoughts they have which included It is to late to change; I'm always going to be like this; I will never get credit?.. Patient benefited from increased awareness of growth mindset and fixed thoughts and how fixed thoughts impact their mental health. Will continue in IOP to maintain safety, increase healthy coping skills, and improve functioning. Narrative Note: []
--- NOTE | 2023-03-05 11:15 | BH.SGPN.GN ---
Behaviors/Verbalizations/Mental Status: []Pt alert and oriented, casually dressed and groomed. Eye contact fair to good. Motor activity appropriate. Speech within normal limits. Affect congruent, mood anxious and content. Thoughts linear, logical, no signs of hallucinations or delusions. Client Response/Progress/Benefit: [] Pt was an active participant during activity and discussion AEB providing some input when prompted, connecting with peers, as well as taking notes throughout. Pt did well to remain attentive as group worked on identifying characteristics and benefits of adopting a growth mindset. Worked with fellow participants in reframing the example fixed thoughts into growth mindset thoughts. Pt worked on changing own fixed thought of It's too late to change to a more growth mindset thought of I can keep going to IOP to continue growing and using coping skills . Receptive of discussing benefits of growth mindset and brainstorming strategies for prompting growth-mindset. Pt appeared to benefit from working in small groups to challenge own thoughts and help peers. Pt will continue IOP tx to improve mood stability, reduce negative thought patterns, and improve daily functioning. Narrative Note: []
--- NOTE | 2023-03-08 09:05 | BH.SGPN.GN ---
Behaviors/Verbalizations/Mental Status: [Patient was alert and oriented, appropriately dressed and groomed. Eye contact was good, motor activity normal, speech within normal limits. Affect congruent, mood content. Thoughts linear, logical, no signs of hallucinations or delusions. Reviewed Patients symptom tracker and the patient reports low in depressed mood. Patient does not report any symptoms in anxiety/panic attacks, agitation/irritability/anger, self-harm urges, or thought/risk of suicide.] Client Response/Progress/Benefit: [Patient was engaged and open to the discussion. Patient reported her mood to be ?tired and hopeful?. Patients first win is that she has been in the program for about 5 weeks now and that she has found it very helpful. She stated she is grateful for what this program has done for her. Patients second win was that her get together over the weekend went well and she had ?a great time? but now her sleep schedule is off since she stayed up all night Wednesday. Patients stressor is that this coming weekend she is going to a big family gathering on her husbands side of the family and she does not like being around a lot of people. Her sister in-law will be there though which she is a good support. Patient was interactive and respectful with other group members about their mental wins and stressors. Patient benefited from the discussion by listening to feedback and giving input on her peer?s stressors and mental health wins. Patient will continue with IOP treatment to help develop healthy skills, promote mood stability, and improve distress tolerance. ] Narrative Note: []
--- NOTE | 2023-03-08 10:10 | BH.SGPN.GN ---
Behaviors/Verbalizations/Mental Status: [] Eye contact is good. Motor activity is appropriate. Appearance is casual. Speech is Appropriate. Mood is anxious. Affect is constricted. Thoughts are linear and logical. No evidence of psychosis. Client Response/Progress/Benefit: [] Pt was an active participant in group discussions. Attentive during psychoeducation AEB by note taking and providing some input. Pt worked along with peers in small groups to define guilt, inappropriate guilt, and appropriate guilt. Interactive discussion on examples of both inappropriate and appropriate guilt. Pt identified a personal example of inappropriate guilt feeling bad about taking care of self and how this impacted their mental health. Benefited from increased awareness of guilt and the differences between appropriate and inappropriate guilt. Will continue in IOP to improve distress tolerance, increase healthy coping, and prevent decompensation.
--- NOTE | 2023-03-08 11:10 | BH.SGPN.GN ---
Behaviors/Verbalizations/Mental Status: []Pt alert and oriented, neatly dressed and groomed. Eye contact good. Motor activity appropriate. Speech within normal limits. Affect constricted, mood dysthymic. Thoughts linear, logical, no signs of hallucinations or delusions. Client Response/Progress/Benefit: [] Pt engaged participant AEB listening attentively to others and providing input throughout group. Pt worked with their small group to identify strategies to manage inappropriate guilt. Pt stated pt often feels inappropriate guilt when pt ?takes care of myself? instead of always taking care of others. Pt wants to work on combatting inappropriate guilt by continuing to come to IOP and work on her mental health. Pt seemed to benefit from learning about strategies to manage appropriate and inappropriate guilt. Pt will continue IOP tx to increase self-care, reduce negative thinking patterns, and improve emotional regulation. Narrative Note: []
--- NOTE | 2023-03-10 09:05 | BH.SGPN.GN ---
Behaviors/Verbalizations/Mental Status: [Patient was alert and oriented, appropriately dressed and groomed. Eye contact was good, motor activity normal, speech within normal limits. Affect congruent, mood content. Thoughts linear, logical, no signs of hallucinations or delusions. Reviewed Patients symptom tracker and the patient reports low in depressed mood. Patient does not report any symptoms in anxiety/panic attacks, agitation/irritability/anger, self-harm urges, or thought/risk of suicide.] Client Response/Progress/Benefit: [Patient was engaged and open to the discussion. Patient reported her mood to be ?happy?. Patients firs win was that she got some alone time last night and decided to color which has been a coping skill she has been trying out. Patient reported that it has been helping and she likes it. Patients second win was that she finally got her deer meat all put into the freezer which she had been putting off. Patient stressor was that this weekend she has a get together that she can?t stop thinking about and is not wanting to go to. Patient was interactive and respectful with other group members about their mental wins and stressors. Patient benefited from the discussion by listening to feedback and giving input on her peer?s stressors and mental health wins. Patient will continue with IOP treatment to help develop healthy skills, promote mood stability, and improve distress tolerance. ] Narrative Note: []
--- NOTE | 2023-03-10 11:15 | BH.SGPN.GN ---
Behaviors/Verbalizations/Mental Status: []Pt alert and oriented, casually dressed and groomed. Eye contact fair to good. Motor activity appropriate. Speech within normal limits. Affect congruent, mood anxious. Thoughts linear, logical, no signs of hallucinations or delusions. Client Response/Progress/Benefit: [] Pt responded well to session AEB taking notes and contributing to discussion throughout. Pt engaged as group continued discussion on acceptance and the mental health benefits of practicing acceptance. Pt and peers identified what makes acceptance challenging and pt completed a self-reflection exercise on what is hard to accept in pt's life. Pt identified struggling to accept needing a medication and making mistakes?. Group identified strategies to increase acceptance and pt shared wanting to focus on continuing to come to IOP to get positive encouragement. Pt appeared to benefit from gaining insight and learning strategies to increase acceptance. Pt will continue IOP tx to improve mood stability, reduce negative thinking patterns, and increase self-care. Narrative Note: []
--- NOTE | 2023-03-10 11:46 | PCM.BH.PN_ITS ---
Progress Note Progress Note: History of Present Illness/Interim History: The patient is a 43-year-old Mormon female with a history of depression and anxiety who is seen in follow-up at the [facility] behavioral health IOP. Last saw the patient 3 weeks ago and no medication changes were made at that time. The patient according to staff has been consistently attending and is engaged in the program. They feel she is making good progress. The patient states that her mood continues to improve slowly. She feels she is much less depressed than she was when she started the program. She describes minimal sadness now. She has had 1 anger outburst that her in the last week and this is decreased from 2-3 times a week before. She has not had any crying episodes in the past week. She still has occasional hopelessness and guilt but denies worthlessness. She denies passive thoughts of , suicidal ideation, plan for suicide, homicidal ideation, hallucinations or delusions. She denies any new stresses and is applying the skills that she is learning at home. She feels her daughters are behaving better lately as she is learning to set boundaries and as her mood improves. Current Psychiatric Medications: [] Lexapro 10 mg p.o. daily (times almost 1 month now). Mental Status Examination: [] Patient is a 43-year-old Mormon woman dressed in the normal Mormon style who appears a little older than stated age and is casually dressed and groomed with good hygiene. She is cooperative and pleasant during the interview and has no psychomotor agitation or retardation. Eye contact is good and speech is normal rate and rhythm and fluent with no pressure. Mood is minimally to slightly depressed. Affect is full and normal. Thought process is goal-directed and organized. Thought content: Patient is hopeful for the future. There is no evidence of passive thoughts of , suic idal ideation, plan for suicide, homicidal ideation, hallucinations or delusions. Reality testing is intact. Intelligence is average or above average. Judgment is intact. Insight is good. Diagnoses: [] 1. Major depressive disorder, recurrent, severe without psychosis (resolving) 2. Generalized anxiety disorder 3. Primary support issues Plan: [] The patient will continue the IOP in behavioral health at [facility] as the structure, support, education and group therapy are benefiting the patient and lessening her symptoms. She felt safe during the interview and if it anytime she does not feel safe she agrees to let us know or go to the emergency room. No medication changes were made and refills were sent in for her Lexapro. She will continue to follow-up with her outpatient providers and I will see the patient in follow-up while she is in the IOP program.
--- NOTE | 2023-03-10 13:01 | BH.MDN_ITS ---
Multi-Disciplinary Note Note 30-min Individual: Time Started:: 08:23 Date: 03/10/23 Purpose of session/treatment goals addressed:: Purpose of session was to address tx plan goal #1 objective #2 and goal #2, objective #1. Eye Contact:: Good Motor Activity:: Appropriate Appearance:: Neat and Casual Speech:: Appropriate Mood:: Euthymic and Anxious Affect:: Constricted Thoughts:: Linear, Logical and No evidence of hallucinations/delusions noted Staff Interventions:: thought challenging, CBT techniques, mindfulness skills and strengths perspective Client Response:: Pt receptive of session, actively engaged and reports ?I?m doing a lot better than last week?. Shared that she had a moment of anger with her when feeling pressed for time while prepping for a family gathering on Wednesday, but successfully did not lash out at him. Shared she instead took a break, did some deep breathing, and practiced the ?5-senses? skill. Pt reports finding this relaxing and helped her to feel less stressed as a result. Shared the gathering was successful and pt heard her tell his sister that she is ?doing fantastic?. Pt described setting aside time this week to color, sharing that initially her children were upset with pt for doing so but by the 3rd time she did this they joined in. Noted that her children continue to struggle with fully understanding pt?s mental health needs, but they have become more accepting and empathetic over the past few weeks. Pt has another gathering this Wednesday, this time with her ?s side of the family, which she expressed increased anxiety about. Shared that she was asked to make several dozens of scrambled eggs for the event and is worried about having the time to do so. Shared she usually takes the mornings to ease herself into the day and will not have the ability to do that this weekend. Pt worried about regulating her emotions under the stress of the morning prep. Did well to identify a need for time alone to take a break at some point prior to the get together. Pt identified plans to communicate this with her and advocate for taking her break while the rest of the family is gathering eggs from the hens. Reports that she can also step outside to take a break and use grounding skills if feeling overwhelmed during the get together as well. Risks/Concerns:: None noted. Pt denies SI, plan, or intent as of this date, 1/17/24. Progress Toward Goals/Plan:: Progress noted. Pt reports continued improvement in her mood and ability to regulate when feeling overwhelmed or upset. She reports actively using skills to calm herself and better communicate with supports. Pt finds the group environment particularly helpful and is open to attending support groups through [facility] to continue to maintain gains and have additional social support following IOP d/c on 03/31/23. Pt recommended to continue in IOP tx until that time to continue to promote skill application, improve mood stability, and prevent decompensation. Time Stopped:: 08:53
--- NOTE | 2023-03-11 10:15 | BH.SGPN.GN ---
Behaviors/Verbalizations/Mental Status: []Client alert and oriented, casually dressed and groomed. Eye contact good. Motor activity appropriate. Speech within normal limits. Affect congruent, mood anxious and euthymic. Thoughts linear, logical, no signs of hallucinations or delusions. Client Response/Progress/Benefit: []Pt engaged in session AEB listening attentively to others throughout group discussion. Pt engaged in activity, able to connect how it can be uncomfortable and difficult to accept when things are out of one?s own control. Pt worked with group to identify what things in life can be hard to accept. Group identified things hard to accept as: , body image, loss of relationship, mental health diagnosis, other?s behaviors, and past decisions. Pt worked on identifying what personal things are hard to accept for themself, sharing needing medications for her mental health and past mistakes are some things pt struggles with accepting. Pt seemed to benefit from increased awareness of importance of acceptance. Pt to continue IOP to further improve mood stability, continue to promote application of distress tolerance skills, and prevent decompensation. Narrative Note: []
--- NOTE | 2023-03-15 09:05 | BH.SGPN.GN ---
Behaviors/Verbalizations/Mental Status: [Patient was alert and oriented, appropriately dressed and groomed. Eye contact was good, motor activity normal, speech within normal limits. Affect congruent, mood content. Thoughts linear, logical, no signs of hallucinations or delusions. Reviewed Patients symptom tracker and the patient reports depressed mood, anxiety/panic attacks, agitation/irritability/anger, self-harm risk, and thoughts/risk of suicide within normal limits.] Client Response/Progress/Benefit: [Patient was engaged and open to the discussion. Patient reported her mood to be ?tired?. Patients first win was that her Wednesday get together went really well and she thinks because she gave herself a 30-minute break during the get together to decompress. Patients second win was that she took the extra trip to do her laundry in town instead of waiting until she was conveniently in [place]. Patients stressor is that her has a heart doctor appointment, and she is nervous what they will say. Patient was interactive and respectful with other group members about their mental wins and stressors. Patient benefited from the discussion by listening to feedback and giving input on her peer?s stressors and mental health wins. Patient will continue with IOP treatment to help develop healthy skills, promote mood stability, and improve distress tolerance. ] Narrative Note: []
--- NOTE | 2023-03-15 10:15 | BH.SGPN.GN ---
Behaviors/Verbalizations/Mental Status: []Eye contact is good. Motor activity is appropriate. Appearance is casual. Speech is Appropriate. Mood is calm. Affect is congruent. Thoughts are linear and logical. No evidence of psychosis Client Response/Progress/Benefit: [] Pt was a passive participant in group discussions AEB listening attentively to other. Participated in and was engaged during experiential activity. Able to relate activity to group topic of FOF. Engaged during interactive discussion on what failure means to the group in which peers identified and defined failure. Group was able to identify impact of fear of failure on mental health. Attentive during interactive discussion on the role that FOF plays in mental wellness, depression, anxiety, and growth. Pt was quiet and taking notes, but nodding at times when pts talked about impact of FOF. Benefited from increased awareness of how the role that FOF plays in mental health and decision-making. Will continue in IOP to promote mood stability, reinforce healthy coping skills, and further combat distortions. ? Narrative Note: []
--- NOTE | 2023-03-15 11:15 | BH.SGPN.GN ---
Behaviors/Verbalizations/Mental Status: []Pt alert and oriented, casually dressed and groomed. Eye contact good. Motor activity appropriate. Speech within normal limits. Affect congruent, mood euthymic. Thoughts linear, logical, no signs of hallucinations or delusions. Client Response/Progress/Benefit: [] Pt responded well to session, engaged in the experiential activity and attentive throughout group processing. Pt reported fear of failure has kept Pt from seeking mental health tx in the past. Pt completed fear of failure worksheet and was able to identify thoughts and behaviors that reinforce personal fear of failure including difficulties communicating needs in the moments, poor boundaries, and negative self-talk. Pt participated in group discussion regarding strategies to overcome fear of failure. Identified wanting to work on asking for help from supports. Appeared to benefit from increased knowledge of strategies to combat fear of failure and gaining self-awareness. Pt will continue IOP tx to improve mood stability, promote self-care, and prevent decompensation. Narrative Note: []
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
== END 2023-03-17 08:05 ==
LOC: BHIOP 07:28
PROVIDERS: Referring Provider Psychiatry & Neurology Psychiatry; Visit Provider Psychiatry & Neurology Psychiatry
DX: F33.2 Major depressive disorder, recurrent severe without psychotic features (principal); F41.1 Generalized anxiety disorder
CPT/HCPCS: S9480; 90832; 90834; 90853

== ENCOUNTER 2023-04-15 08:00 | Outpatient (RCR) | payer SELFPAY, OTHER ==
--- NOTE | 2023-04-15 14:00 | BH.COMM ---
Communication Note Communication with Client Communication Note: Patient completed IOP and presents today to start relapse prevention group which meets once weekly (1.5 hours) for 8 weeks. Case discussed with Dr. Lofton with plan to admit with dx of F33.2
--- NOTE | 2023-04-15 14:00 | BH.SGPN.GN ---
Behaviors/Verbalizations/Mental Status: []Pt alert and oriented, neatly dressed and groomed. Eye contact good. Motor activity appropriate. Speech within normal limits. Affect congruent, mood euthymic. Thoughts linear, logical, no signs of hallucinations or delusions. Client Response/Progress/Benefit: []Pt receptive of session, engaged throughout. Pt reports she has been taking medications consistently and pt is following up with her therapist. Pt reports use of deep breathing and getting outside more to cope with stressors. Receptive of discussion on personal accountability and its importance in maintaining mental health stability. Engaged in brainstorming strategies for improving ability to hold themselves accountable and participated in the activity. Pt admitted that the activity elicited frustration and stress, but pt did not give up. Reported wanting to work on making notes to remind herself to practice self-care. Pt feels she is visually driven, and this will help her. Pt seemed to benefit from support from peers and increasing understanding of personal accountability benefits and strategies. Will continue IOP aftercare group to maintain gains and prevent decompensation. Narrative Note: []
--- NOTE | 2023-04-22 10:47 | BH.MTP_ITS ---
Master Treatment Plan Patient Information Program Physician:: Dr. Janeen Lofton Primary Therapist:: CALIXTO Bauer Psychiatric Diagnoses Psychiatric Diagnoses:: 1. Major depressive disorder, recurrent, severe without psychosis (resolving) 2. Generalized anxiety disorder Diagnosis Code(s):: F33.2 Estimated LOS Estimated LOS (in weeks):: 8 Problem/Goal #1 Problem/Goal #1 Stated Goal:: client will maintain or see a reduction in symptoms AEB client score on the DSM 5 cross-cutting measure and improve client's daily functioning. Objectives Objective #1: Stated Objective: Client will continue to consistently apply healthy copi ng skills to maintain progress made in IOP tx. Interventions: Through group therapy, client will review warning signs and triggers as well as healthy coping skills learned in IOP tx to successfully maintain gains while transitioning into outpatient therapy. Discharge Criteria: Client will have accomplished this goal when client's score on the DSM-5 cross-cutting measure has maintained or reduced over a 8 week period. Target Date: 06/10/23 Review Date: 05/06/23 Objective #2: Stated Objective: Client will learn and utilize 2-3 maintenance strategies to prevent decompensation from original IOP DSM-5 scores. Interventions: Through group therapy, client will be provided with education on healthy maintenance behaviors, relapse prevention techniques, and healthy coping strategies. Discharge Criteria: Client will have accomplished this goal when can report using at least 2 maintenance skills to prevent decompensation compared to original IOP DSM-5 scores Target Date: 06/10/23 Review Date: 05/06/23
== END 2023-04-22 23:59 ==
LOC: BHOG 08:00
PROVIDERS: Referring Provider Psychiatry & Neurology Psychiatry; Visit Provider Psychiatry & Neurology Psychiatry
DX: F33.2 Major depressive disorder, recurrent severe without psychotic features (principal)
CPT/HCPCS: 90853

== ENCOUNTER 2023-04-23 07:01 | Outpatient (RCR) | payer SELFPAY, OTHER ==
--- NOTE | 2023-05-06 10:50 | BH.MTP_ITS ---
Treatment Plan Review Demographics Date of Admission:: 04/22/23 Date of Treatment Plan Review:: 05/06/23 Admitting Diagnoses:: 1. Major depressive disorder, recurrent, severe without psychosis (resolving) 2. Generalized anxiety disorder Current Diagnoses:: 1. Major depressive disorder, recurrent, severe without psychosis (resolving) 2. Generalized anxiety disorder Patient Status Patient's Response to Treatment:: Pt continues to respond well to treatment AEB pt's consistent attendance, ongoing attentiveness and engagement in group discussions, and continued reporting use of skills outside treatment environment. Pt's symptoms are down 95% lower than they were at IOP admission. Status of Current Problems and Symptoms: Pt continues to report symptoms of anxiety per the DSM-5, but pt identified these symptoms as rare to mild. Pt reports there are days when her nerves and worry are increased but she is doing better to communicate and effectively apply grounding skills to prevent further sx escalation. Pt has ongoing stressors with caregiving but noted her family has been increasingly supportive. Progress Problem #1: Problem Name:: Pt will maintain or decrease symptoms from IOP admission data. Status of Goals:: Obj 1 - complete with ongoing work encouraged- Pt has been able to maintain gains made in IOP as pt?s DSM-5 scores are 97% lower than they were at IOP admission. 100% decrease in depressive symptoms and 86% decrease in anxiety when compared to IOP admission scores. Obj 2 - complete with ongoing work encouraged. Pt has been consistently reporting use of opposite action, distress tolerance and grounding skills, engaging in self-care prac tices, and using thought challenging. Team Recommendations:: Recommended client continue IOP aftercare group to show maintenance of progress. Will continue to encourage client to attend regular outpatient counseling and psychiatry appointments as well.
--- NOTE | 2023-05-06 14:00 | BH.SGPN.GN ---
Behaviors/Verbalizations/Mental Status: []Pt alert and oriented, casually dressed and groomed. Eye contact good. Motor activity appropriate. Speech within normal limits. Affect congruent, mood euthymic. Thoughts linear, logical, no signs of hallucinations or delusions. Client Response/Progress/Benefit: [] Pt receptive of session, engaged throughout. Pt shared she has not met with her new outpatient therapist but has an appointment, pt has been consistent with meds. Reports the coping skills used throughout the week included: self-compassion, time with her animals, and advocating for herself. Receptive of discussion on the three components of the Wellness [place] (social, mental health, and physical) and the importance of balancing each of these areas. Pt contributed to the discussion on the variables impacting each area of wellness including: biology, environment, attitude, behavior, technology, and social support network. Completed an assessment reviewing personal wellness in each pillar of the wellness triangle. Identified wanting to work on social wellness by increasing her contact with social supports. Pt seemed to benefit from support from peers and increasing understanding of the relationship between different areas of wellness. Will remain in the aftercare program to maintain gain and prevent decompensation.
--- NOTE | 2023-05-13 14:00 | BH.SGPN.GN ---
Behaviors/Verbalizations/Mental Status: []Pt alert and oriented, neatly dressed and groomed. Eye contact good. Motor activity appropriate. Speech within normal limits. Affect congruent, mood euthymic. Thoughts linear, logical, no signs of hallucinations or delusions. Client Response/Progress/Benefit: [] Pt receptive of session, engaged throughout. Pt did not have an appointment with a therapist this week. Pt has been consistent with taking meds and using coping skills. These skills included: stretching, getting outside, and sticking to a bedtime routine. Receptive of discussion on sitting with the uncomfortable and emotional urges. Pt contributed to the discussion of distress tolerance and how building distress tolerance can help improve mood stability and resilience. Pt looked at a recent situation that was distressing and wrote out low distress tolerance and high distress tolerance responses. Pt wants to work on not becoming emotionally reactive when someone does not answer the phone. Pt seemed to benefit from support from peers and increasing understanding of distress tolerance. Will continue IOP aftercare tx to promote gains made in IOP and promote mood stability. Narrative Note: []
--- NOTE | 2023-05-18 10:43 | BH.MTP_ITS ---
Master Treatment Plan Patient Information Program Physician:: Dr. Janeen Lofton Primary Therapist:: CALIXTO Bauer Psychiatric Diagnoses Psychiatric Diagnoses:: 1. Major depressive disorder, recurrent, severe without psychosis (resolving) 2. Generalized anxiety disorder Diagnosis Code(s):: F 33.2 Estimated LOS Estimated LOS (in weeks):: 8 Problem/Goal #1 Problem/Goal #1 Stated Goal:: client will maintain or see a reduction in symptoms AEB client score on the DSM 5 cross-cutting measure and improve client's daily functioning. Objectives Objective #1: Stated Objective: Client will continue to consistently apply healthy copy center operator ing skills to maintain progress made in IOP tx. Interventions: Through group therapy, client will review warning signs and triggers as well as healthy coping skills learned in IOP tx to successfully maintain gains while transitioning into outpatient therapy. Discharge Criteria: Client will have accomplished this goal when client's score on the DSM-5 cross-cutting measure has maintained or reduced over a 8 week period. Target Date: 06/10/23 Review Date: 05/06/23 Objective #2: Stated Objective: Client will learn and utilize 2-3 maintenance strategies to prevent decompensation from original IOP DSM-5 scores. Interventions: Through group therapy, client will be provided with education on healthy maintenance behaviors, relapse prevention techniques, and healthy coping strategies. Discharge Criteria: Client will have accomplished this goal when can report using at least 2 maintenance skills to prevent decompensation compared to original IOP DSM-5 scores Target Date: 06/10/23
== END 2023-05-23 23:59 ==
LOC: BHOG 07:01
PROVIDERS: Referring Provider Psychiatry & Neurology Psychiatry; Visit Provider Psychiatry & Neurology Psychiatry
DX: F33.2 Major depressive disorder, recurrent severe without psychotic features (principal); F41.1 Generalized anxiety disorder
CPT/HCPCS: 90853

== ENCOUNTER 2023-05-24 07:11 | Outpatient (RCR) | payer SELFPAY, OTHER ==
--- NOTE | 2023-05-27 14:00 | BH.SGPN.GN ---
Behaviors/Verbalizations/Mental Status: []Pt alert and oriented, casually dressed and groomed. Eye contact good. Motor activity appropriate. Speech within normal limits. Affect congruent, mood content, positive. Thoughts linear, logical, no signs of hallucinations or delusions. Client Response/Progress/Benefit: []Pt responded well to session AEB sharing and listening attentively to others. Pt has been consistent with outpatient mental health appointments and medication compliance. Pt reports using positive self-talk, opposite action, and daily stretching/walks to help with managing mental health symptoms. Pt participated in group discussion defining affirmations and why they are important. Pt provided insight throughout clinician?s presentation of tips for writing personal affirmations and wrote their own affirmations, including ?I am worthy of engaging in self-care, I deserve to ask and recieve the help I need, I am important and deserve to have my voice heard?. Pt appeared to benefit from increased knowledge of affirmation writing skills and creating their own affirmation statements to remind themselves of outside tx environment. Will continue aftercare tx to promote consistent mental health maintenance and prevent decompensation. Narrative Note: [] Behaviors/Verbalizations/Mental Status: []Pt alert and oriented, casually dressed and groomed. Eye contact good. Motor activity appropriate. Speech within normal limits. Affect congruent, mood content, positive. Thoughts linear, logical, no signs of hallucinations or delusions. Client Response/Progress/Benefit: []Pt responded well to session AEB sharing and listening attentively to others. Pt has been consistent with outpatient mental health appointments and medication compliance. Pt reports using positive self-talk, opposite action, and daily stretching/walks to help with managing mental health symptoms. Pt participated in group discussion defining affirmations and why they are important. Pt provided insight throughout clinician?s presentation of tips for writing personal affirmations and wrote their own affirmations, including ?I am worthy of engaging in self-care, I deserve to ask and recieve the help I need, I am important and deserve to have my voice heard?. Pt appeared to benefit from increased knowledge of affirmation writing skills and creating their own affirmation statements to remind themselves of outside tx environment. Will continue aftercare tx to promote consistent mental health maintenance and prevent decompensation. Narrative Note: []
--- NOTE | 2023-06-03 13:52 | BH.DS ---
Discharge Summary Demographics Date of Admission:: 04/15/23 Discharge Date: 06/03/23 Presenting Problems at Admission:: Client discharged from IOP tx and transitioned to IOP aftercare to maintain gains client made in IOP and to reinforce healthy coping skills. At admission to [facility] aftercare, client reported experiencing mild to moderate symptoms of anxiety, depression, and irritability. 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 Ongoing difficulties in maintaining consistent with boundaries, positive self-talk, and mood management skills. Discharge Diagnoses:: 1. Major depressive disorder, recurrent, severe without psychosis (resolving) 2. Generalized anxiety disorder Reason for Discharge:: Pt has completed the aftercare program and has met the maximum benefit of aftercare tx. Pt will continue with outpatient counseling and psychiatry for ongoing maintenance. Treatment Progress During Treatment & Response: Pt did well with attendance and remained active in engagement. Pt contributed well during group discussions when prompted, often providing supportive feedback. Pt was able to see a reduction of overall sx from IOP admission to aftercare discharge of 87%, with a 67% reduction in depression, 67% reduction in irritability, 100% reduction in suicidal ideation, and 100% reduction in sx of anxiety. Pt reports improved ability to manage daily stressors, communicate with supports, and challenge distorted thought patterns. Issues Still to be Addressed:: Distorted thoughts and ongoing issues with irritability, negative self-talk, avoidance, ruminations, difficulty setting boundaries and communicating needs when feeling overwhelmed. Discharge Recommendations/Instructions:: Pt will discharge from IOP tx today and is scheduled to continue with outpatient providers at [facility] for counseling and medication management. Discharge Handout
== END 2023-06-04 07:05 | disposition home or self-care (01) ==
LOC: BHOG 07:11
PROVIDERS: Referring Provider Psychiatry & Neurology Psychiatry; Visit Provider Psychiatry & Neurology Psychiatry
DX: F33.2 Major depressive disorder, recurrent severe without psychotic features (principal); F41.1 Generalized anxiety disorder
CPT/HCPCS: 90853